=== PATIENT | male | born 1970 | race African-American/Black ===

== ENCOUNTER 2019-10-26 17:48 | Emergency (ER) | payer SELFPAY ==
[~2019-10-26] VITALS: Ht 182.9 cm; Wt 135.9 kg
[2019-10-26 18:18] VITALS: Ht 182.9 cm; Wt 135.9 kg
[2019-10-26] MEDS ORDERED: STERAPRED DS 1010 MG PO (19:28)
[2019-10-26] MEDS ORDERED: ZPAK PO (19:28)
[2019-10-26] MEDS ORDERED: MUCINEX DM ER1 EAC1 PO (19:28)
[2019-10-26 20:01] VITALS: BP 159/98
== END 2019-10-26 20:01 | disposition home or self-care (01) ==
LOC: D.ER 17:48
DX: J06.9 Acute upper respiratory infection, unspecified (principal); J40 Bronchitis, not specified as acute or chronic